=== PATIENT | female | born 1965 | race African-American/Black ===

== ENCOUNTER 2024-04-01 08:50 | Outpatient (CLI) | payer OTHER | END 2024-04-01 08:51 | disposition home or self-care (01) | LOC: CSHMAMMO 08:50 | PROVIDERS: ATTEND Family Medicine | DX: N63.10 Unspecified lump in the right breast, unspecified quadrant (principal); R92.8 Other abnormal and inconclusive findings on diagnostic imaging of breast | CPT/HCPCS: G0279 ==